=== PATIENT | female | born 1990 | race Caucasian/White ===

== ENCOUNTER → 2017-11-05 | Outpatient (REF) | payer OTHER | LOC: M LAB REF 13:29 | PROVIDERS: ATTEND Obstetrics & Gynecology | DX: N93.9 Abnormal uterine and vaginal bleeding, unspecified (principal) ==

== ENCOUNTER → 2017-11-19 | Outpatient (REF) | payer OTHER ==
[2017-11-20 13:18] LABS: CHLAMYDIA DNA AMPLIFICATION NEGATIVE (NEGATIVE); GC DNA AMPLIFICATION NEGATIVE (NEGATIVE)
== END ==
LOC: M SFHCLERA 20:15
DX: R30.0 Dysuria (principal)

== ENCOUNTER → 2018-04-28 | Outpatient (REF) | payer OTHER | LOC: M SFHCLERA 17:37 | DX: J02.9 Acute pharyngitis, unspecified (principal) ==

== ENCOUNTER 2021-09-13 00:48 | Emergency (ER) | payer OTHER, SELFPAY ==
[~2021-09-13] VITALS: Ht 162.6 cm; Wt 100.0 kg
[2021-09-13] MEDS ORDERED: CLAR5TAB7 PO (02:12)
[2021-09-13 03:30] LABS: APPEARANCE, URINE HAZY (CLEAR); BACTERIA, URINE AUTO NEGATIVE (NEGATIVE); BILIRUBIN, URINE AUTO NEGATIVE (NEGATIVE); BLOOD, URINE BLOOD 2+ (NEGATIVE); COLOR, URINE YELLOW (YELLOW); GLUCOSE, URINE (UA) AUTO NEGATIVE (NEGATIVE); KETONE, URINE AUTO TRACE mg/dL (NEGATIVE); LEUKOCYTE ESTERASE, URINE AUTO NEGATIVE (NEGATIVE); MUCUS, URINE SMALL (NEGATIVE); NITRITE, URINE AUTO NEGATIVE (NEGATIVE); PROTEIN, URINE AUTO NEGATIVE (NEGATIVE); RBC, URINE AUTO 5 /HPF (0-3); SPECIFIC GRAVITY URINE AUTO 1.023 (1.002-1.035); SQUAMOUS EPITHELIAL CELL UR AU 7 /HPF (0-6); UROBILINOGEN, URINE AUTO 0.2 mg/dL (0.0-2.0); WBC, URINE AUTO 4 /HPF (0-3)
[2021-09-13] MEDS ORDERED: KETOROLAC 30 MG/ML 1ML VIAL IV ONE (07:35)
[2021-09-13] MEDS ORDERED: NS 1,000 ML IV ONE (07:35)
[2021-09-13 08:24] LABS: BASO % 0.2 % (0.0-1.0); EOS % 0.1 % (0.0-3.0); HEMATOCRIT 40.4 % (36.0-47.0); HEMOGLOBIN 13.9 g/dl (12.0-15.5); LYMPH # 2.2 10^3/uL (1.5-5.0); LYMPH % 12.9 % (24.0-44.0); MEAN CORPUSCULAR HEMOGLOBIN 30.4 pg (27.0-33.0); MEAN CORPUSCULAR HGB CONC 34.4 g/dl (32.0-36.5); MEAN CORPUSCULAR VOLUME 88.4 fl (80.0-96.0); MONO # 0.9 10^3/uL (0.0-0.8); MONO % 5.5 % (2.0-8.0); NEUTROPHILS # 13.6 10^3/uL (1.5-8.5); NEUTROPHILS % 80.8 % (36.0-66.0); PLATELET COUNT, AUTOMATED 330 10^3/uL (150-450); RED BLOOD COUNT 4.57 10^6/uL (4.00-5.40); WHITE BLOOD COUNT 16.9 10^3/uL (4.0-10.0)
[2021-09-13 08:46] LABS: ALBUMIN 3.9 GM/DL (3.2-5.2); BILIRUBIN,DIRECT 0.1 MG/DL (0.0-0.2); BILIRUBIN,TOTAL 0.5 MG/DL (0.2-1.0); TOTAL PROTEIN 8.2 GM/DL (6.4-8.2)
--- NOTE | 2021-09-13 08:58 | REP ---
INDICATION: left flank pain; await hcg poc. COMPARISON: None. TECHNIQUE: Standard helical technique without intravenous or oral bowel preparatory contrast. Stone protocol utilized secondary to left flank pain FINDINGS: The lung bases are clear. In the distal left ureter just proximal to the ureterovesical junction there is 4 mm size calculus. There is mild left-sided hydronephrosis, hydroureter, and periureteral edema. No nephroliths are seen on either side. The right kidney and renal collecting system are normal. The liver, gallbladder, spleen, pancreas, and adrenal glands are within normal limits. The bowel loops and the mesenteries are within normal limits. The abdominal aorta and para-aortic regions are within normal limits. Bone window technique throughout the examination shows the osseous structures to be within normal limits. IMPRESSION: Left-sided obstructive uropathy as described above. <Electronically signed by Khang Vela > 09/13/21 [id number]
[2021-09-13] MEDS ORDERED: NORCO, ANEXSIA 5/325MG TABLET (HYDROcodone/ACETAMINOPHEN) PO ONE (09:10)
[2021-09-13] MEDS ORDERED: IBUP-1022 PO (09:26)
[2021-09-13] MEDS ORDERED: OXYC1TAB23 PO (09:28)
[2021-09-13 09:37] VITALS: BP 136/84
== END 2021-09-13 09:39 | disposition home or self-care (01) ==
LOC: M ED 00:48
DX: N23 Unspecified renal colic (principal); F17.200 Nicotine dependence, unspecified, uncomplicated; Z79.899 Other long term (current) drug therapy; Z91.018 Allergy to other foods; Z87.440 Personal history of urinary (tract) infections; Z87.42 Personal history of other diseases of the female genital tract
CPT/HCPCS: 74176; 80047; 80076; 81001; 83690; 84702; 85025; 87086; 93041; 96374; 99284; J1885